=== PATIENT | female | born 1995 | race Caucasian/White ===

== ENCOUNTER 2019-02-25 13:45 | Emergency (ER) | payer SELFPAY ==
[2019-02-25] MEDS ORDERED: LIDOCAINE 1%/EPINEPHRINE INJ 20 ML VIAL INJ ONE (14:26)
--- NOTE | 2019-02-25 14:29 | ER Document Report ---
ED Medical Screen (RME) - General Chief Complaint: Cyst Stated Complaint: POSSIBLE ABSCESS Time Seen by Provider: 02/25/19 14:20 Notes: Patient is a 19-year-old female who presents the emergency department with a chief complaint of a lump to her right side of her back inferior and medial to her right scapula. She has had this lump for 3 years and had no problem with it. About 2 days ago it started hurting and her boyfriend stated that it was starting to get red. Denies any drainage. patient denies any fever. Patient is not a diabetic. Exam: Raised erythematous area noted to right side of inferior, medial right scapula. Tender to touch. Multiple small little pustules consistent with acne on back. I have greeted and performed a rapid initial assessment of this patient. A comprehensive ED assessment and evaluation of the patient, analysis of test results and completion of medical decision making process will be conducted by an additional ED providers. TRAVEL OUTSIDE OF THE [place] IN LAST 30 DAYS: No - Related Data Allergies/Adverse Reactions: No Known Allergies Allergy (Verified 02/25/19 13:46) Physical Exam - Vital signs Vitals: Temp Pulse Resp BP Pulse Ox 98.3 F 84 16 105/69 98 02/25/19 13:50 02/25/19 13:50 02/25/19 13:50 02/25/19 13:50 02/25/19 13:50 Course - Vital Signs Vital signs: Temp Pulse Resp BP Pulse Ox 98.3 F 84 16 105/69 98 02/25/19 13:50 02/25/19 13:50 02/25/19 13:50 02/25/19 13:50 02/25/19 13:50
[2019-02-25] MEDS ORDERED: SULFAMETHOXAZOLE/TRIMETHOPRIM 800-160 MG TABLET PO ONE (14:55)
[2019-02-25] MEDS ORDERED: CEPHALEXIN 500 MG CAPSULE PO ONE (14:55)
[2019-02-25 15:02] LABS: ABSOLUTE BASOPHILS # (AUTO) 0.1 10^3/uL (0.0-0.2); ABSOLUTE EOSINOPHILS # (AUTO) 0.1 10^3/uL (0.0-0.6); ABSOLUTE LYMPHOCYTES (AUTO) 1.7 10^3/uL (0.5-4.7); ABSOLUTE MONOCYTES (AUTO) 0.7 10^3/uL (0.1-1.4); ABSOLUTE NEUT (AUTO) 4.6 10^3/uL (1.7-8.2); BASOPHILS % (AUTO) 0.9 % (0-2); EOSINOPHILS % (AUTO) 1.8 % (0-6); HEMATOCRIT 37.4 % (36.0-47.0); HEMOGLOBIN 12.7 g/dL (12.0-15.5); LYMPHOCYTES % (AUTO) 23.7 % (13-45); MEAN CORPUSCULAR HEMOGLOBIN 29.9 pg (27.0-33.4); MEAN CORPUSCULAR VOLUME 88 fl (80-97); MONOCYTES % (AUTO) 9.4 % (3-13); PLATELET COUNT 285 10^3/uL (150-450); RED BLOOD COUNT 4.25 10^6/uL (3.72-5.28); RED CELL DISTRIBUTION WIDTH 13.2 % (11.5-14.0); SEGMENTED NEUTROPHILS % (AUTO) 64.2 % (42-78); TOTAL CELLS COUNTED % (AUTO) 100 %; WHITE BLOOD COUNT 7.2 10^3/uL (4.0-10.5)
--- NOTE | 2019-02-25 15:03 | ER Document Report ---
ED Skin Rash/Insect Bite/Abscs - General Chief Complaint: Cyst Stated Complaint: POSSIBLE ABSCESS Time Seen by Provider: 02/25/19 14:20 Information source: Patient Notes: HPI: 23-year-old female with past medical history of cystic acne who states a "boil" to the right posterior back for 3 days. No fevers no vomiting. No history of diabetes. No history of abscesses. She states it is very tender to touch. She states she believes it used to be a lymph node in that area but it is never been painful, red, or swollen. ROS: See HPI Reviewed vital signs and nursing note as charted by RN. PHYSICAL EXAM: CONSTITUTIONAL: Alert and oriented and responds appropriately to questions. Well-appearing; well-nourished SKIN: Patient has a tender, fluctuant, painful lesion to the right posterior upper back just medial to the scapula. Surrounding erythema TRAVEL OUTSIDE OF THE [place] IN LAST 30 DAYS: No - Related Data Allergies/Adverse Reactions: No Known Allergies Allergy (Verified 02/25/19 13:46) Past Medical History - Social History Smoking Status: Unknown if Ever Smoked Family History: Reviewed & Not Pertinent Patient has suicidal ideation: No Patient has homicidal ideation: No Renal/ Medical History: Denies: Hx Peritoneal Dialysis Physical Exam - Vital signs Vitals: Temp Pulse Resp BP Pulse Ox 98.3 F 84 16 105/69 98 02/25/19 13:50 02/25/19 13:50 02/25/19 13:50 02/25/19 13:50 02/25/19 13:50 Course - Re-evaluation Re-evalutation: 02/25/19 14:58 Given the above history and physical we will check a , Accu-Chek, and perform a bedside incision and drainage. Patient has verbally consented. - Vital Signs Vital signs: Temp Pulse Resp BP Pulse Ox 98.3 F 55 L 14 111/57 L 100 02/25/19 13:50 02/25/19 15:40 02/25/19 15:40 02/25/19 15:40 02/25/19 15:40 - Laboratory Result Diagrams: 02/25/19 14:45 Procedures - Incision and Drainage Upper Back Type: Simple Anesthetic type: 1% Lidocaine w/epi mL's of anesthetic: 8 Blade size: 11 I&D procedure: Chlorprep applied, Iodoform packing placed Incision Method: Incision made by scalpel Notes: 02/25/19 15:03 Serosanguineous drainage. I probed and the deloculated lesion. I packed it with quarter inch iodoform gauze Discharge - Discharge Clinical Impression: Skin abscess Qualifiers: Site of cutaneous abscess: trunk Site of cutaneous abscess of trunk: back Qualified Code(s): L02.212 - Cutaneous abscess of back [any part, except buttock] Condition: Good Disposition: HOME, SELF-CARE Additional Instructions: Come back immediately for any increased pain, swelling, fever, vomiting, or any other acute problems. Please follow-up with the primary care physician as discussed. Please have the packing removed in 2 days by returning here for reassessment of the lesion. If the packing falls out, there is no need to return for replacement. Prescriptions: Cephalexin Monohydrate [Keflex 500 mg Capsule] 500 mg PO TID #21 capsule Sulfamethoxazole/Trimethoprim [Bactrim Ds Tablet] 1 each PO BID #14 tablet
[2019-02-25 15:45] VITALS: BP 111/57
== END 2019-02-25 15:40 | disposition home or self-care (01) ==
LOC: ER 13:45
PROC: 0H96XZZ Drainage of Back Skin, External Approach (ICD-10-PCS; principal; 2019-02-25)
DX: L02.212 Cutaneous abscess of back [any part, except buttock and flank] (principal)
CPT/HCPCS: 99284; 36415; 82962; 85025; 81025; 10060; A6266; J3490